=== PATIENT | female | born 1985 | race Caucasian/White ===

== ENCOUNTER 2016-09-28 18:54 | Emergency (ER) | payer OTHER ==
[2016-09-28] MEDS ORDERED: Ketorolac 60 MG/2 ML SDV IM ONE (19:29)
--- NOTE | 2016-09-28 19:31 | EDM.PDOC ---
ED HPI GENERAL MEDICAL PROBLEM - General Chief Complaint: Back Pain or Injury Stated Complaint: BACK PAIN Time Seen by Provider: 09/28/16 21:28 - History of Present Illness INITIAL COMMENTS - FREE TEXT/NARRATIVE: HISTORY AND PHYSICAL: History of present illness: Patient 31-year-old female presents with concern of upper back and shoulder pain that occurred when she felt a pop while pulling something at work she denies other trauma or concern Review of systems: As per history of present illness and below otherwise all systems reviewed and negative. Past medical history: As per history of present illness and as reviewed below otherwise noncontributory. Surgical history: As per history of present illness and as reviewed below otherwise noncontributory. Social history: No reported history of drug or alcohol abuse. Family history: As per history of present illness and as reviewed below otherwise noncontributory. Physical exam: HEENT: Atraumatic, normocephalic, pupils reactive, negative for conjunctival pallor or scleral icterus, mucous membranes moist, throat clear, neck supple, nontender, trachea midline. Lungs: Clear to auscultation, breath sounds equal bilaterally, chest nontender. Heart: S1S2, regular, negative for clicks, rubs, or JVD. Abdomen: Soft, nondistended, nontender. Negative for masses or hepatosplenomegaly. Negative for costovertebral tenderness. Pelvis: Stable nontender. Genitourinary: Deferred. Rectal: Deferred. Extremities: Patient has some mild tenderness of the upper posterior shoulder and parathoracic region to palpation this is not localized is no point tenderness no crepitation no vertebral body tenderness she is Antonette range of motion secondary to pain CMS and neurovascular exam are unremarkable Neuro: Awake, alert, oriented. Cranial nerves II through XII unremarkable. Cerebellum unremarkable. Motor and sensory unremarkable throughout. Exam nonfocal. Diagnostics: X-ray right shoulder thoracic spine urine drug screen hCG [employer]rapeutics: Toradol 60 mg IM Impression: #1 acute right shoulder injury #2 thoracic strain Definitive disposition and diagnosis as appropriate pending reevaluation and review of above. back Pain Score (Numeric/FACES): 10 - Related Data Allergies Allergy/AdvReac Type Severity Reaction Status Date / Time No Known Allergies Allergy Verified 09/28/16 19:12 Home Meds: Home Meds . [No Known Home Meds] 09/28/16 [History] Past Medical History - Past Health History Medical/Surgical History: Denies Medical/Surgical History - Infectious Disease History Infectious Disease History: Reports: None Social & Family History - Family History Family Medical History: Noncontributory - Tobacco Use Smoking Status *Q: Never Smoker - Recreational Drug Use Recreational Drug Use: No ED ROS GENERAL - Review of Systems Review Of Systems: ROS reveals no pertinent complaints other than HPI. ED EXAM, GENERAL - Physical Exam Exam: See Below (See dictation) Course - Vital Signs Last Recorded V/S: Last Vital Signs Temp 36.7 C 09/28/16 19:13 Pulse 84 09/28/16 19:13 Resp 16 09/28/16 19:13 BP 134/64 09/28/16 19:13 Pulse Ox 98 09/28/16 19:13 - Orders/Labs/Meds Orders: Active Orders 24 hr Category Date Time Status Shoulder Comp Rt [CR] Stat Exams 09/28/16 19:28 Taken Thoracic Spine 2V [CR] Stat Exams 09/28/16 19:28 Taken DRUG SCREEN, URINE [URCHEM] Stat Lab 09/28/16 19:29 Uncollected Labs: Laboratory Tests 09/28/16 Range/Units 20:11 HCG, Qual NEGATIVE (NEG) Meds: Medications Discontinued Medications Generic Name Dose Route Start Last Admin Trade Name Paramq PRN Reason Stop Dose Admin Ketorolac Tromethamine 60 mg 09/28/16 19:29 09/28/16 19:41 Toradol IM 09/28/16 19:30 60 mg ONETIME ONE Administration Departure - Departure Time of Disposition: 21:28 Disposition: Home, Self-Care 01 Condition: Good Clinical Impression: Shoulder injury, Thoracic myofascial strain - Discharge Information Forms: ED Department Discharge Additional Instructions: The following information is given to patients seen in the emergency department who are being discharged to home. This information is to outline your options for follow-up care. We provide all patients seen in our emergency department with a follow-up referral. The need for follow-up, as well as the timing and circumstances, are variable depending upon the specifics of your emergency department visit. If you don't have a primary care physician on staff, we will provide you with a referral. We always advise you to contact your personal physician following an emergency department visit to inform them of the circumstance of the visit and for follow-up with them and/or the need for any referrals to a consulting specialist. The emergency department will also refer you to a specialist when appropriate. This referral assures that you have the opportunity for followup care with a specialist. All of these measure are taken in an effort to provide you with optimal care, which includes your followup. Under all circumstances we always encourage you to contact your private physician who remains a resource for coordinating your care. When calling for followup care, please make the office aware that this follow-up is from your recent emergency room visit. If for any reason you are refused follow-up, please contact the [facility] emergency department at and asked to speak to the emergency department charge nurse. Naprosyn as prescribed sling as directed follow-up primary medical doctor 1-2 days return as needed as discussed - My Orders Last 24 Hours: My Active Orders 09/28/16 19:28 Shoulder Comp Rt [CR] Stat Thoracic Spine 2V [CR] Stat 09/28/16 19:29 DRUG SCREEN, URINE [URCHEM] Stat - Assessment/Plan Last 24 Hours: My Active Orders 09/28/16 19:28 Shoulder Comp Rt [CR] Stat Thoracic Spine 2V [CR] Stat 09/28/16 19:29 DRUG SCREEN, URINE [URCHEM] Stat
[2016-09-29 03:36] VITALS: BP 127/68
--- NOTE | 2016-09-29 10:21 | CR ---
EXAM DATE: 09/28/16 PATIENT'S AGE: 31 Patient: CHAVA CARROLL Facility: [place], [place] Site . Site : 1985 Study: XRay Shoulder Right [id number]/27/2017 8:34:36 PM Ordering Physician: Doctor Askew Final Report: INDICATION: pain TECHNIQUE: Right shoulder 3 views COMPARISON: None. FINDINGS: Bones: Alignment is normal. No fractures or bone lesions. Joint spaces: Unremarkable. Soft tissues: Unremarkable. IMPRESSION: Unremarkable right shoulder. Dictated by: Angelo Greenberg MD @ 09/28/2016 20:47:15 (Electronic Signature) Report Signed by Proxy. GENESIS
--- NOTE | 2016-09-29 10:22 | CR ---
EXAM DATE: 09/28/16 PATIENT'S AGE: 31 Patient: CHAVA CARROLL Facility: [place], [place] Site . Site : 1985 Study: XRay Spine Thoracic [id number]/27/2017 8:34:53 PM Ordering Physician: Doctor Askew Final Report: INDICATION: pain TECHNIQUE: Thoracic spine 2 views. COMPARISON: None. FINDINGS: Bones: Alignment is normal. No fractures or bone lesions. Joint spaces: Disc spaces are normal. Facet joints are normal. Soft tissues: Negative. IMPRESSION: Negative thoracic spine. Dictated by: Angelo Greenberg MD @ 09/28/2016 20:44:37 (Electronic Signature) Report Signed by Proxy. [facility] DIVISIONAnshu
== END 2016-09-28 21:56 | disposition home or self-care (01) ==
LOC: MW.ED 18:54
DX: S29.012A Strain of muscle and tendon of back wall of thorax, initial encounter (principal); S49.91XA Unspecified injury of right shoulder and upper arm, initial encounter; X50.9XXA Other and unspecified overexertion or strenuous movements or postures, initial encounter
CPT/HCPCS: 36415; 72070; 73030; 80305; 84703; 96372; 99284; A4566; J1885; 99283